=== PATIENT | female | born 1960 | race Native Hawaiian/Other Pacific Islander ===

== ENCOUNTER 2020-06-30 15:30 | Emergency (ER) | payer OTHER ==
[~2020-06-30] VITALS: Ht 160 cm; Wt 49.9 kg
[2020-06-30 15:48] VITALS: TEMP 97.9
[2020-06-30 17:22] LABS: PLATELET COUNT 242 K/uL (152-353)
[2020-06-30 17:26] LABS: POTASSIUM 3.6 mmol/L (3.6-5.2)
[2020-06-30 17:46] LABS: PARTIAL THROMBOPLASTIN TIME 24.2 SECONDS (24.5-33.6)
[2020-06-30 20:16] VITALS: BP 173/97
== END 2020-06-30 20:16 | disposition home or self-care (01) ==
LOC: ED 15:30
PROVIDERS: Family Medicine
DX: I10 Essential (primary) hypertension (principal); R42 Dizziness and giddiness
CPT/HCPCS: 80053; 81000; 85027; 85610; 85730; 96374; 99284; J2405

== ENCOUNTER → 2021-01-04 | Outpatient (CLI) | payer OTHER | LOC: INF 15:34 | PROVIDERS: ATTEND Internal Medicine | DX: Z23 Encounter for immunization (principal) | CPT/HCPCS: 96372 ==

== ENCOUNTER 2021-01-28 09:19 | Outpatient (CLI) | payer OTHER | END 2021-01-28 23:59 | disposition home or self-care (01) | LOC: INF 09:19 | PROVIDERS: ATTEND Internal Medicine | DX: Z23 Encounter for immunization (principal) | CPT/HCPCS: 96372 ==